=== PATIENT | female | born 1965 | race Caucasian/White ===

== ENCOUNTER → 2017-05-01 | Outpatient (CLI) | payer MEDICAID ==
[2017-05-01 15:05] LABS: ALBUMIN 3.5 gm/dl (3.1-4.5); ALKALINE PHOSPHATASE 144 U/L (45-117); BUN 16 mg/dl (7-24); CHLORIDE 105 mmol/L (98-107); FREE T4 1.12 ng/dl (0.76-1.46); POTASSIUM 4.3 mmol/L (3.5-5.1); SGOT/AST 25 IU/L (3-35); SGPT/ALT 31 U/L (12-78); SODIUM 140 mmol/L (136-145); TOTAL PROTEIN 7.2 gm/dL (6.4-8.2)
[2017-05-02 07:04] LABS: FREE T3 010389 2.5 pg/mL (2.0-4.4)
== END | disposition home or self-care (01) ==
LOC: LAB 13:49
PROVIDERS: Family Medicine
DX: E03.9 Hypothyroidism, unspecified (principal); R53.83 Other fatigue

== ENCOUNTER 2023-05-16 21:25 | Emergency (ER) | payer OTHER ==
[~2023-05-16] VITALS: Ht 172.7 cm; Wt 113.4 kg
[~2023-05-16 21:25] MED LIST: BENADRYL ALLERG25 M5 PO; COENZYME Q10100 M2 PO; CRESTOR5 M1 PO; CYMBALTA60 MG PO; DELTASONE2.5 MG PO; DIAMODE2 MG PO; FEROSUL325 MG PO; FLONASE ALLERG9.9 ML NAS; GABAPENTIN600 MG PO; HYDR1000 IM; KEPPRA500 MG PO; LEVOTHYROXINE200 MC3 PO; LEVOTHYROXINE25 MCG PO; LOVENOX30 MG/0.3 SQ; METHOTREXATE2.5 MG PO; METOPROLOL SUCC25 M2 PO; MYRBETRIQ50 M1 PO; NATURE'S BLEND F1 MG PO; OMEPRAZOLE MAGN20 MG PO; PRAMOXINE HCL15 GM R; SAPHNELO IV; TOLTERODINE TART4 M1 PO; VENTOLIN 02.5 MG/3 M INH; XANAX1 MG PO; ZETIA10 MG PO
[2023-05-16 22:09] LABS: BASO % 0.4 % (0.0-1.0); EOS # 0.1 10*3/uL (0.0-0.4); EOS % 1.8 % (1.0-4.0); HEMATOCRIT 41.7 % (37.0-47.0); LYMPH # 1.8 10*3/uL (1.3-4.4); LYMPH % 23.8 % (27.0-41.0); MEAN CELL VOLUME 100.2 fl (81.0-99.0); MEAN CORPUSCULAR HGB CONC 31.9 g/dl (33.0-37.0); MEAN PLATELET VOLUME 9.2 fl (9.6-12.3); MONO # 0.4 10*3/uL (0.1-1.0); NEUT % 68.2 % (47.0-73.0); PLATELET COUNT AUTOMATED 183 10*3/uL (130-400); RED BLOOD COUNT 4.16 10*6/uL (4.10-5.10); RED CELL DISTRI WIDTH 13.8 % (0-14.5); WHITE BLOOD COUNT 7.4 10*3/uL (4.8-10.8)
[2023-05-16 22:30] LABS: ALKALINE PHOSPHATASE 148 U/L (46-116); BUN 13 mg/dl (9-23); CHLORIDE 103 mmol/L (98-107); POTASSIUM 4.1 mmol/L (3.4-5.1); SGPT/ALT 55 U/L (5-49); TOTAL PROTEIN 6.4 gm/dL (6.0-8.0)
[2023-05-16] MEDS ORDERED: GABAPENTIN 300 MG CAP PO ONE (23:15)
== END 2023-05-17 10:31 | disposition home or self-care (01) ==
LOC: ED 21:25
PROVIDERS: Nurse Practitioner
DX: M25.552 Pain in left hip (principal); G89.29 Other chronic pain; M79.89 Other specified soft tissue disorders; R20.0 Anesthesia of skin; R53.1 Weakness; Z79.899 Other long term (current) drug therapy; Z88.0 Allergy status to penicillin; W17.89XA Other fall from one level to another, initial encounter; Y93.89 Activity, other specified; Y92.488 Other paved roadways as the place of occurrence of the external cause; Y99.8 Other external cause status

== ENCOUNTER → 2024-04-17 | Outpatient (CLI) | payer OTHER ==
[~2024-04-17] MED LIST changes: +COLCHICINE0.6 M1 PO; +ENOXAPARIN150 MG/1 M SQ; +GNP VITAMIN A113 GM TD; +JANUVIA25 MG PO; +KENALOG ORABASE5 GM MM; +LEVETIRACETAM500 MG PO; +MAGNESIUM OXID400 MG PO; +OMNICEF300 MG PO; +TRIMETHOPRIM100 MG PO; +VITAMIN D3 PO; +ZITHROMAX500 MG PO; +[UNRECOGNIZED DRUG - OTHER] MC
== END | disposition home or self-care (01) ==
LOC: RAD 14:00
PROVIDERS: ATTEND Internal Medicine
DX: M19.011 Primary osteoarthritis, right shoulder (principal); M79.601 Pain in right arm; M71.9 Bursopathy, unspecified

== ENCOUNTER 2024-10-20 17:51 | Emergency (ER) | payer OTHER ==
[~2024-10-20] VITALS: Wt 137.4 kg
[~2024-10-20 17:51] MED LIST changes: +DOXYCYCLINE MO100 MG PO; +Ipratropium Brom3 ML INH; +METOPROLOL SUCC50 M1 PO; +NEBULIZER NEB; +NICODERM CQ1 EAC2 T; +PREDNISONE10 MG PO
[2024-10-20 19:35] LABS: BASO # 0.0 10*3/uL (0.0-0.1); BASO % 0.2 % (0.0-1.0); EOS # 0.1 10*3/uL (0.0-0.4); EOS % 0.7 % (1.0-4.0); MEAN CELL VOLUME 99.4 fl (81.0-99.0); MEAN CORPUSCULAR HGB 31.9 pg (27.0-31.0); MEAN PLATELET VOLUME 10.4 fl (9.6-12.3); MONO # 0.3 10*3/uL (0.1-1.0); MONO % 2.8 % (3.0-9.0); NEUT # 8.6 10*3/uL (2.3-7.9); NEUT % 80.0 % (47.0-73.0); NUCLEATED RED BLOOD CELL 0.0 % (0.0-0.0); NUCLEATED RED BLOOD CELL 0.0 10*3/uL (0.0-0.0); PLATELET COUNT AUTOMATED 212 10*3/uL (130-400); RED CELL DISTRI WIDTH 14.3 % (0-14.5)
[2024-10-20 19:53] LABS: BUN 9 mg/dl (9-23)
== END 2024-10-20 20:16 | disposition home or self-care (01) ==
LOC: ED 17:51
PROVIDERS: Nurse Practitioner Family
DX: R22.31 Localized swelling, mass and lump, right upper limb (principal); Z90.89 Acquired absence of other organs; Z88.0 Allergy status to penicillin; Z86.73 Personal history of transient ischemic attack (TIA), and cerebral infarction without residual deficits